=== PATIENT | female | born 1995 | race Caucasian/White ===

== ENCOUNTER 2017-09-11 23:22 | Emergency (ER) | payer OTHER ==
[2017-09-12 03:07] VITALS: BP 137/73
== END 2017-09-12 03:07 | disposition home or self-care (01) ==
LOC: ED 23:22
DX: S61.412A Laceration without foreign body of left hand, initial encounter (principal); W31.89XA Contact with other specified machinery, initial encounter; Y93.89 Activity, other specified; Y92.89 Other specified places as the place of occurrence of the external cause; Y99.8 Other external cause status
CPT/HCPCS: 90715; A4570; J2001

== ENCOUNTER 2017-09-14 14:12 | Emergency (ER) | payer OTHER ==
[~2017-09-14] VITALS: Ht 162.6 cm; Wt 65.8 kg
[2017-09-14 14:19] VITALS: Ht 162.6 cm; Wt 65.8 kg
[2017-09-14 15:19] VITALS: BP 123/79
== END 2017-09-14 15:19 | disposition home or self-care (01) ==
LOC: ED 14:12
DX: S61.412D Laceration without foreign body of left hand, subsequent encounter (principal); W31.89XD Contact with other specified machinery, subsequent encounter

== ENCOUNTER 2017-09-16 10:12 | Emergency (ER) | payer OTHER ==
[~2017-09-16] VITALS: Ht 165.1 cm; Wt 79.9 kg
[2017-09-16 10:17] VITALS: BP 129/68; Ht 165.1 cm; Wt 79.9 kg
== END 2017-09-16 10:48 | disposition home or self-care (01) ==
LOC: ED 10:12
DX: S61.412D Laceration without foreign body of left hand, subsequent encounter (principal); R00.0 Tachycardia, unspecified; X58.XXXD Exposure to other specified factors, subsequent encounter

== ENCOUNTER 2017-09-21 16:02 | Emergency (ER) | payer OTHER ==
[~2017-09-21] VITALS: Ht 167.6 cm; Wt 75.3 kg
[2017-09-21 16:44] VITALS: BP 128/74; Ht 167.6 cm; Wt 75.3 kg
== END 2017-09-21 19:15 | disposition home or self-care (01) ==
LOC: ED 16:02
DX: S61.412D Laceration without foreign body of left hand, subsequent encounter (principal); X58.XXXD Exposure to other specified factors, subsequent encounter